=== PATIENT | female | born 1960 | race Two or more races ===

== ENCOUNTER 2021-06-27 04:35 | Day surgery (SDC) | payer BC, OTHER ==
[2021-06-21 13:42] VITALS: BMI 42.9
[2021-06-27] MEDS ORDERED: BACITRACIN 15 GM TUBE TOPICAL OINTMENT ONE (14:41)
[2021-06-27] MEDS ORDERED: LIDOCAINE HCL 1%, 10 MG/ML (20ML VIAL) ONE (14:57)
[2021-06-27] MEDS ORDERED: BUPIVACAINE HCL/PF 0.5% (5MG/ML) 10 ML VIAL ONE (15:02)
[2021-06-27] MEDS ORDERED: DEXMEDETOMIDINE HCL 200 MCG/2 ML IVPB ONE (15:02)
[2021-06-27] MEDS ORDERED: MIDAZOLAM HCL 2 MG/2 ML SINGLE DOSE VIAL ONE (15:40)
[2021-06-27] MEDS ORDERED: ceFAZolin SODIUM 1 GM VIAL IVPB ONE (16:03)
[2021-06-27] MEDS ORDERED: LIDOCAINE HCL 1%, 10 MG/ML (20ML VIAL) SQ ONE (16:05)
[2021-06-27] MEDS ORDERED: LACTATED RINGERS SOLUTION 1,000 ML IV SCH (16:30)
[2021-06-27 20:30] VITALS: BP 128/60; PULSE 76; TEMP 98
== END 2021-06-27 20:40 | disposition home or self-care (01) ==
LOC: JASU-SURG 04:35
PROVIDERS: ATTEND Surgery Vascular Surgery
PROC: 0HBLXZZ Excision of Left Lower Leg Skin, External Approach (ICD-10-PCS; principal; 2021-06-27 12:00)
DX: L97.929 Non-pressure chronic ulcer of unspecified part of left lower leg with unspecified severity (principal)
CPT/HCPCS: 82962; 94760